=== PATIENT | female | born 1965 | race Caucasian/White ===

== ENCOUNTER 2018-08-08 23:55 | Outpatient (CLI) | payer SELFPAY ==
[2018-08-09 08:14] LABS: HEMOGLOBIN A1C 5.5 % (4.5-6.2)
[2018-08-09 08:30] LABS: CHOL/HDL RATIO 2.18 (0.00-4.99)
== END 2018-08-08 23:59 | disposition home or self-care (01) ==
LOC: HW HEART 23:55
DX: Z13.6 Encounter for screening for cardiovascular disorders (principal)
CPT/HCPCS: 36415